=== PATIENT | male | born 1970 | race Two or more races ===

== ENCOUNTER 2022-08-21 05:53 | Emergency (ER) | payer MEDICAID ==
[~2022-08-21] VITALS: Ht 177.8 cm; Wt 68.0 kg
[2022-08-21 07:11] LABS: BASOPHILS % (AUTO) 0.4 % (0-1); EOSINOPHILS # (AUTO) 0.1 X10'3 (0-0.9); EOSINOPHILS % (AUTO) 0.6 % (0-6); HEMATOCRIT 50.4 % (42.0-52.0); HEMOGLOBIN 17.1 g/dl (14.0-17.9); LYMPHOCYTES # (AUTO) 1.2 X10'3 (1.1-4.8); MEAN CORPUSCULAR HEMOGLOBIN 30.9 PG (27.0-31.0); MEAN CORPUSCULAR VOLUME 91.1 FL (78-98); MEAN PLATELET VOLUME 8.8 FL (7.4-10.4); MONOCYTES # (AUTO) 0.4 X10'3 (0-0.9); MONOCYTES % (AUTO) 4.7 % (2-12); NEUTROPHILS # (AUTO) 6.5 X10'3 (1.8-7.7); NEUTROPHILS % (AUTO) 79.3 % (42-75); PLATELET COUNT 229 X10'3 (140-440); RED BLOOD COUNT 5.53 X10'6 (4.70-6.10); RED CELL DISTRIBUTION WIDTH 13.8 % (11.5-14.5); WHITE BLOOD COUNT 8.2 X10'3 (4.5-11.0)
[2022-08-21 07:40] LABS: ALANINE AMINOTRANSFERASE 22 U/L (12-78); ALBUMIN 3.9 G/DL (3.4-5.0); ALBUMIN/GLOBULIN RATIO 1.3 (1.1-1.5); ALKALINE PHOSPHATASE 66 IU/L (46-116); ANION GAP 7 (8-16); ASPARTATE AMINO TRANSFERASE 33 U/L (10-37); BILIRUBIN,TOTAL 0.6 MG/DL (0.1-1.0); BLOOD UREA NITROGEN 20 MG/DL (7-18); BUN/CREATININE RATIO 27.8 (5.4-32.0); CALCIUM 9.3 MG/DL (8.5-10.1); CHLORIDE 101 MMOL/L (99-107); CREATININE 0.72 MG/DL (0.60-1.10); GLUCOSE 109 MG/DL (70-104); POTASSIUM 3.7 MMOL/L (3.5-5.1); SODIUM 135 MMOL/L (135-145); TOTAL PROTEIN 6.8 G/DL (6.4-8.2); eGFR > 90 ML/MIN
[2022-08-21 07:47] LABS: ETHANOL < 0.010 GM/DL (0.0-0.010)
--- NOTE | 2022-08-21 07:57 | NUR ---
While waiting in the lobby, pt has difficulty following simple instructions in Hungarian and Swedish. He keeps getting up to use hand spray ii painter over and over.
--- NOTE | 2022-08-21 10:56 | NUR ---
sent urine to lab at this time. pt was straight cathed
[2022-08-21 11:26] LABS: CLARITY,URINE CLEAR (Clear); COLOR,URINE YELLOW (Yellow); GLUCOSE, URINE NEGATIVE (Neg); KETONES,URINE 15 mg/dl (Neg); LEUKOCYTE ESTERASE ,URINE NEGATIVE (Neg); NITRITES, URINE NEGATIVE (Neg); OCCULT BLOOD,URINE NEGATIVE (Neg); PH,URINE 5.5 (4.8-8.0); PROTEIN,URINE NEGATIVE (Neg); UROBILINOGEN,URINE 0.2 E.U/dL (0.2-1.0)
[2022-08-21 11:41] LABS: UA COLLECTION TYPE STRAIGHT CATH; URINE AMPHETAMINE SCREEN NEGATIVE (Neg); URINE BARBITUATE SCREEN NEGATIVE (Neg); URINE BENZODIAZEPINES SCREEN NEGATIVE (Neg); URINE CANNABINOID SCREEN POSITIVE (Neg); URINE COCAINE SCREEN NEGATIVE (Neg); URINE METHADONE SCREEN NEGATIVE (Neg); URINE OPIATE SCREEN NEGATIVE (Neg); URINE PHENCYCLIDINE SCREEN NEGATIVE (Neg)
[2022-08-21 13:53] VITALS: BP 134/76
[2022-08-22] MEDS ORDERED: NO HOME MEDS (16:17)
== END 2022-08-21 13:54 | disposition home or self-care (01) ==
LOC: ER 05:55
DX: R05.9 Cough, unspecified (principal)
CPT/HCPCS: 36415; 71045; 80053; 80305; 80320; 81003; 82948; 83605; 83880; 85025; 87040; 99284

== ENCOUNTER 2022-08-22 04:37 | Inpatient (IN) | payer MEDICAID ==
[~2022-08-22] VITALS: Ht 182.9 cm; Wt 68.4 kg
[2022-08-22 14:25] LABS: BASOPHILS % (AUTO) 0.7 % (0-1); EOSINOPHILS # (AUTO) 0.1 X10'3 (0-0.9); EOSINOPHILS % (AUTO) 1.6 % (0-6); HEMOGLOBIN 16.3 g/dl (14.0-17.9); LYMPHOCYTES # (AUTO) 1.5 X10'3 (1.1-4.8); MEAN CORPUSCULAR HEMOGLOBIN 31.7 PG (27.0-31.0); MEAN CORPUSCULAR HGB CONC 34.6 g/dL (33.0-36.5); MEAN CORPUSCULAR VOLUME 91.6 FL (78-98); MEAN PLATELET VOLUME 8.6 FL (7.4-10.4); MONOCYTES # (AUTO) 0.3 X10'3 (0-0.9); MONOCYTES % (AUTO) 5.8 % (2-12); NEUTROPHILS # (AUTO) 3.1 X10'3 (1.8-7.7); NEUTROPHILS % (AUTO) 61.9 % (42-75); PLATELET COUNT 223 X10'3 (140-440); RED BLOOD COUNT 5.13 X10'6 (4.70-6.10); RED CELL DISTRIBUTION WIDTH 13.7 % (11.5-14.5)
[2022-08-22 14:39] LABS: ALANINE AMINOTRANSFERASE 30 U/L (12-78); ALBUMIN 3.7 G/DL (3.4-5.0); ALBUMIN/GLOBULIN RATIO 1.3 (1.1-1.5); ALKALINE PHOSPHATASE 57 IU/L (46-116); ANION GAP 6 (8-16); ASPARTATE AMINO TRANSFERASE 54 U/L (10-37); BILIRUBIN,TOTAL 0.9 MG/DL (0.1-1.0); BLOOD UREA NITROGEN 14 MG/DL (7-18); BUN/CREATININE RATIO 16.3 (5.4-32.0); CALCIUM 9.6 MG/DL (8.5-10.1); CHLORIDE 104 MMOL/L (99-107); CREATININE 0.86 MG/DL (0.60-1.10); GLUCOSE 103 MG/DL (70-104); POTASSIUM 3.8 MMOL/L (3.5-5.1); SODIUM 142 MMOL/L (135-145); TOTAL CARBON DIOXIDE 32.4 MMOL/L (24-32); TOTAL PROTEIN 6.6 G/DL (6.4-8.2); eGFR > 90 ML/MIN
[2022-08-22 14:49] LABS: ETHANOL < 0.010 GM/DL (0.0-0.010)
--- NOTE | 2022-08-22 15:33 | NUR ---
PT GIVEN A BED BATH, BED LINEN CHANGE, AND PUT IN GREEN SCRUBS.
[2022-08-22 15:49] LABS: URINE AMPHETAMINE SCREEN NEGATIVE (Neg); URINE BARBITUATE SCREEN NEGATIVE (Neg); URINE BENZODIAZEPINES SCREEN NEGATIVE (Neg); URINE CANNABINOID SCREEN POSITIVE (Neg); URINE COCAINE SCREEN NEGATIVE (Neg); URINE METHADONE SCREEN NEGATIVE (Neg); URINE OPIATE SCREEN NEGATIVE (Neg); URINE PHENCYCLIDINE SCREEN NEGATIVE (Neg)
[2022-08-22] MEDS ORDERED: NO HOME MEDS (16:17)
--- NOTE | 2022-08-22 16:30 | NUR ---
Pt. ambulated over from the Main ER accompanied by Pankaj. He is currently resting in bed.
--- NOTE | 2022-08-22 16:50 | NUR ---
Pt. is up to use the BR at this time, he is able to ambulate independently, however requires direction from staff.
--- NOTE | 2022-08-22 16:58 | NUR ---
[facility] FAXED PACKET TO [facility]
--- NOTE | 2022-08-22 17:08 | NUR ---
TECH GAVE PT A PITCHER OF WATER AND A FOAM CUP
--- NOTE | 2022-08-22 17:10 | NUR ---
PT CAME TO THE ER WITH NO BELONGINGS.
--- NOTE | 2022-08-22 17:18 | NUR ---
[facility] is at bedside evaluating pt. at this time.
--- NOTE | 2022-08-22 18:07 | NUR ---
TECH GAVE PT THEIR DINNER TRAY
--- NOTE | 2022-08-22 18:10 | NUR ---
Pt. is sitting up eating dinner at this time.
--- NOTE | 2022-08-22 22:07 | NUR ---
[facility] CALLED TO DECLINE PT, STATING THEY DIDNT THINK HE WAS MEDICALLY STABLE. CONCERNED ABOUT PREVIOUSLY CHARTED RESPIRATIONS OF 11, HIGH CO2 LEVEL, AND ASSESSMENT OF EDEMA IN BILATERAL ARMS. THIS RN DIDNT OBSERVE ANY EDEMA IN ARMS AND RESPIRATIONS HAVE BEEN WNL AT THIS TIME. WILL CONTINUE TO MONITOR.
--- NOTE | 2022-08-23 06:30 | NUR ---
Received pt. sleeping, laying on his left side, rr even and unlabored.
--- NOTE | 2022-08-23 08:04 | NUR ---
Pt. awoken for breakfast, sitting up eating at this time.
--- NOTE | 2022-08-23 10:20 | NUR ---
Pt. is laying in bed at this time, he makes frequent body adjustments and at times is observed to be reaching for things that are not there as if experiencing V/LLOYD. He is also observed to be whispering aloud at times as if responding to internal stimuli. However, pt. does not appear to be in any distress. 1:1 was completed, pt. denies all MH s/s, however he continues to be disorganized, A&O X1, and makes non-sensical statements making him difficult to understand.
--- NOTE | 2022-08-23 11:26 | NUR ---
Pt. was up to use the BR, but did not use the toilet and had an incontinent episode. He continues to appear confused and requires direction and prompting to change out of wet clothes. Pt. was also running the water in the sink for a long period of time and getting it on the floor reqiring redirection to return to his bed. A snack was provided and pt. reported contentment, will continue to monitor closely.
[2022-08-23 11:48] LABS: CLARITY,URINE SLIGHTLY CLOUDY (Clear); COLOR,URINE YELLOW (Yellow); GLUCOSE, URINE NEGATIVE (Neg); KETONES,URINE 40 mg/dl (Neg); LEUKOCYTE ESTERASE ,URINE NEGATIVE (Neg); NITRITES, URINE NEGATIVE (Neg); OCCULT BLOOD,URINE NEGATIVE (Neg); PROTEIN,URINE NEGATIVE (Neg)
[2022-08-23 11:57] LABS: UA COLLECTION TYPE STRAIGHT CATH
[2022-08-23 11:59] LABS: BACTERIA,URINE FEW /HPF (Neg); MUCUS STRANDS FEW /LPF (Neg); RBC,URINE 0-2 /HPF (0-2); SQUAMOUS EPITHELIAL CELL,UR FEW /LPF (FEW); WBC,URINE 0-4 /HPF (0-4)
[2022-08-23 12:02] LABS: CAL OXALATE CRYSTALS FEW /HPF (NEGATIVE)
[2022-08-23 12:03] LABS: AMORPHOUS PHOSPHATES 2+
--- NOTE | 2022-08-23 12:16 | NUR ---
Pt. is sitting up in bed eating lunch at this time, no s/s of distress noted.
--- NOTE | 2022-08-23 12:58 | NUR ---
Per [facility], pt. has been accepted at [facility].
--- NOTE | 2022-08-23 14:26 | NUR ---
Pt. was transferred to [facility] via a w/c accompanied by staff and security. Pt. did not have any belongings.
[2022-08-23 14:28] VITALS: BP 117/78
[2022-08-23] MEDS ORDERED: acetaminophen 325mg tablet PO PRN ×2 (14:40)
[2022-08-23] MEDS ORDERED: magnesium hydroxide 30ml (MOM) UD suspension PO PRN (14:40)
[2022-08-23] MEDS ORDERED: NICOTINE POLACRILEX 2 MG LOZENGE BC PRN (14:40)
[2022-08-23] MEDS ORDERED: loperamide 2mg capsule PO PRN (14:40)
--- NOTE | 2022-08-23 15:21 | NUR ---
Admit note: Pt admitted today from ER on 5150 for gravely disabled at 1428. Pt is disorganized and making nonsensical statements. He is speaking and making hand gestures to someone that is not in the room. He is dirty and it is unclear if he has been accessing food, clothing or nursing home. Unknown medical history. Pt had his clothing cut off and disposed of upon arrival.
--- NOTE | 2022-08-23 16:43 | NUR ---
Pt was cooperative with a physical assessment. Unable to determine how much Chilean pt understands. Pt nods his head "yes" when asked if he understands Chilean. This RN asked questions in Gambian about medical and mental health history. Pt responded "no me bianca beasley" He does not remember well. Unable to complete [place] Suicide Risk Assessment or an accurate medical or mental health history at this time due to disorganization/ALOC. Addendum: 08/23/22 at 1656 by Meri Rosado RN (Lee) Initially when asked pt what city this was in [place]ian, he replied, "[place]."
--- NOTE | 2022-08-24 03:43 | NUR ---
Nursing Progress Note: Problem : Patient admitted from ER on 5150 for gravely disabled. Pt is disorganized and making nonsensical statements. He is speaking and making hand gestures to someone that is not in the room. He is dirty and it is unclear if he has been accessing food, clothing or correction. Unknown medical history. Pt had his clothing cut off and disposed of upon arrival. Interventions: Attempted 1:1 assessment, contract for safety, prompting and assistance with ADLs and Q 15 minute safety checks. Response: Patient is pleasant; he's confused and requires prompting and assistance with his ADLs. Patient requires a brief and toileting as he makes no attempts to use the restroom. Patient was showered (with assistance) after urinating on himself. He follows instructions but requires the instructions to be repeated. Patient does not make clear comments in response to story writer's questions. Patient provided HS snacks prior to bed; observed sleeping and does not appear to be having difficulty. Plan: Patient requires a safe and therapeutic environment to start and adjustment medications for stabilization prior to discharge .
--- NOTE | 2022-08-24 07:29 | NUR ---
Noted low BMI using scaled wt however current ht may be in error as previous ht was 70in which would make BMI 20. Currently on Regular diet w/ mostly 100% intake of meals. No concern for malnutrition at this time. Addendum: 08/24/22 at [address] Amended: Links added.
[2022-08-24] MEDS: nicotine 21mg patch - 24 hr TD SCH (08:00)
[2022-08-24 09:40] LABS: HEMOGLOBIN A1C 5.3 % (4.5-6.2)
[2022-08-24 09:42] LABS: CHOL/HDL RATIO 1.8 (0.00-4.99); CHOLESTEROL 105 MG/DL (0-200); HDL CHOLESTEROL 60 MG/DL (35-60); LDL CHOLESTEROL 37 MG/DL (50-100); TRIGLYCERIDES 52 MG/DL (20-135)
--- NOTE | 2022-08-24 17:25 | NUR ---
Nursing Progress Note Problem : Patient admitted from ER on 5150 for gravely disabled. Pt is disorganized and making nonsensical statements. He is speaking and making hand gestures to someone that is not in the room. He is dirty and it is unclear if he has been accessing food, clothing or chcf. Unknown medical history. Pt had his clothing cut off and disposed of upon arrival. Interventions: Attempted 1:1 assessment, contract for safety, prompting and assistance with ADLs and Q 15 minute safety checks. Response: Received Pt in bed resting w/o distress. Pt woke and was cooperative with vitals and returned to sleep. Pt needed direction to bathroom and he urinated. Pt ate some of his breakfast and did not want his only AM med, Jeff. Patch. Pt was given clothes from donations and was appreciative. Rishi spoke with Pt in Maltese and helped to explain unit routines and ask Qs. Pt ate lunch and snacks. He remained in his room for much of day and was pleasant in communication attempts to meet needs. Plan: Patient requires a safe and therapeutic environment to start and adjustment medications for stabilization prior to discharge .
--- NOTE | 2022-08-25 03:32 | NUR ---
Nursing Progress Note: Problem : Patient admitted from ER on 5150 for gravely disabled. Pt is disorganized and making nonsensical statements. He is speaking and making hand gestures to someone that is not in the room. He is dirty and it is unclear if he has been accessing food, clothing or retirement. Unknown medical history. Pt had his clothing cut off and disposed of upon arrival. Interventions: Attempted 1:1 assessment, contract for safety, prompting and assistance with ADLs and Q 15 minute safety checks. Response: Pt finished dinner and in day room at change of shift. Pt is pleasant and cooperative and responds to direction well. Pt has not had an incontinent episode this shift. Pt had a snack and watched TV before going to bed. He did not have any HS meds and is currently sleeping w/o distress. Plan: Patient requires a safe and therapeutic environment to start and adjustment medications for stabilization prior to discharge .
[2022-08-25 08:00] VITALS: BP 113/78
[2022-08-25] MEDS: nicotine 21mg patch - 24 hr TD SCH (08:32)
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
--- NOTE | 2022-08-25 16:50 | NUR ---
Nursing Progress Note Problem : Patient admitted from ER on 5150 for gravely disabled. Pt is disorganized and making nonsensical statements. He is speaking and making hand gestures to someone that is not in the room. He is dirty and it is unclear if he has been accessing food, clothing or correction. Unknown medical history. Pt had his clothing cut off and disposed of upon arrival. Interventions: Attempted 1:1 assessment, contract for safety, prompting and assistance with ADLs and Q 15 minute safety checks. Response: RN received pt. asleep in bed at start of shift. Pt. awoke and cooperative with vitals assessment. Pt. ate breakfast and observed chewing on his juice box. RN asked pt. if he wanted help opening up his juice box and pt. allowed RN to put straw correctly in the juice box. RN asked pt. if he was still hungry and pt. said Yes. Pt. given a turkey sandwich. Pt. observed sitting in group during AM and afternoon group pt. has limited participating due to language barrier. Plan: Patient requires a safe and therapeutic environment to start and adjustment medications for stabilization prior to discharge.
--- NOTE | 2022-08-26 04:56 | NUR ---
Nursing Progress Note: Problem : Patient admitted from ER on 5150 for gravely disabled. Pt is disorganized and making nonsensical statements. He is speaking and making hand gestures to someone that is not in the room. He is dirty and it is unclear if he has been accessing food, clothing or penitentiary. Unknown medical history. Pt had his clothing cut off and disposed of upon arrival. Interventions: Attempted 1:1 assessment, contract for safety, prompting and assistance with ADLs and Q 15 minute safety checks. Response: Patient is pleasant; appears confused. He is able to follow simple instructions. No medications scheduled; Nicotine patch removed. He denies MH Sx, stating, "I'm fine, everything is good." Patient continues to require prompting and assistance with ADLs. Patient is incontinent; wearing a brief with chucks on his bed. Patient is isolative to his room; observed sleeping and does not appear to be having difficulty. Plan: Patient requires a safe and therapeutic environment to start and adjustment medications for stabilization prior to discharge .
[2022-08-26 07:54] VITALS: BP 112/83
[2022-08-26] MEDS: nicotine 21mg patch - 24 hr TD SCH (08:27)
--- NOTE | 2022-08-26 09:59 | NUR ---
INFORMATION, [facility] Client is [place]-speaking only. Client is from [facility] in [facility]. Client was seen once by [facility]. Client's cell phone/contact phone is disconnected. Details: Called [facility] [phone]. Per medical records staff, [facility] evaluated client 08/02/2021. Records show client's phone number [phone]. Address listed -- [address] [place] [address]--does not appear on Goggle, though street appears. [facility] records do show client is [place] speaking only. This software writer faxed [facility] [place]: : Per phone call with health records staff, requested facesheet, discharge summary, ER report,
--- NOTE | 2022-08-26 10:48 | NUR ---
RECORDS REQUEST, [facility] Requested records via fax.
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
--- NOTE | 2022-08-26 18:11 | NUR ---
Nursing Progress Note Problem : Patient admitted from ER on 5150 for gravely disabled. Pt is disorganized and making nonsensical statements. He is speaking and making hand gestures to someone that is not in the room. He is dirty and it is unclear if he has been accessing food, clothing or penitentiary. Unknown medical history. Pt had his clothing cut off and disposed of upon arrival. Interventions: Attempted 1:1 assessment, contract for safety, prompting and assistance with ADLs and Q 15 minute safety checks. Response: RN received pt. awake and wandering hallway at start of shift. Pt. appears lost. RN asked pt. if he needed anything and pt. said, no. RN escorted pt. to his room and showed pt. the toilet, pt. then urinated. Pt. then took the toilet paper roll and held it under the running sink water. RN took toilet paper roll from pt. and prompted pt. to wash his hands. Pt. washed his hands and RN held out paper towel for pt. to dry his hands. Pt. then went back to washing his hands until RN prompted him that he had washed his hands enough. RN showered pt. During shower pt. needed multiple promptings to put his head under the water, to put soap in his hair and this RN had to assist pt. in washing himself. Pt. observed sitting in group during AM and afternoon group pt. After group pt. approached RN and held out a cup asking for water. Pt. wanders into other patients rooms at times and needs to be redirected. Plan: Patient requires a safe and therapeutic environment to start and adjustment medications for stabilization prior to discharge.
[2022-08-26 19:49] VITALS: BP 123/69
--- NOTE | 2022-08-27 04:36 | NUR ---
Nursing Progress Note: Problem : Patient admitted from ER on 5150 for gravely disabled. Pt is disorganized and making nonsensical statements. He is speaking and making hand gestures to someone that is not in the room. He is dirty and it is unclear if he has been accessing food, clothing or fdc. Unknown medical history. Pt had his clothing cut off and disposed of upon arrival. Interventions: Attempted 1:1 assessment, contract for safety, prompting and assistance with ADLs and Q 15 minute safety checks. Response: Patient is pleasant; continues to appear confused. He requires frequent prompting with simple instructions for ADLs. No medications and no Nicotine patch found on him this shift. Patient observed in the community room and participated in HS snack prior to bed. Clean linen, clothing and brief provided. Personal clothing washed. He is observed sleeping and does not appear to be having difficulty. Plan: Patient requires a safe and therapeutic environment to start and adjustment medications for stabilization prior to discharge .
--- NOTE | 2022-08-27 07:43 | NUR ---
Initial: Pt admitted w/ psychosis per EMR. Currently on Regular diet w/ mostly 100% intake of meals meeting est needs at this time. Noted low BMI using scaled wt however current ht may be in error as previous ht was 70in which would make BMI 20. LBM 08/22 w/ PRN bowel care available. No nutrition intervention implemented at this time, will continue to monitor. Recs: 1. Continue Regular diet as tolerated 2. Routine bowel care 3. Weekly wts Addendum: 08/27/22 at [address] Amended: Links added.
[2022-08-27 08:00] VITALS: BP 138/83
[2022-08-27] MEDS: nicotine 21mg patch - 24 hr TD SCH (08:54)
[2022-08-27] MEDS ORDERED: risperiDONE 2mg tablet PO ONE (10:15)
[2022-08-27] MEDS ORDERED: risperiDONE 0.5mg tablet PO ONE (10:20)
[2022-08-27] MEDS: mag hydrox/Alum hydrox/simeth 30ml oral suspension PO PRN (10:28)
--- NOTE | 2022-08-27 17:57 | NUR ---
Nursing Progress Note Problem : Patient admitted from ER on 5150 for gravely disabled. Pt is disorganized and making nonsensical statements. He is speaking and making hand gestures to someone that is not in the room. He is dirty and it is unclear if he has been accessing food, clothing or retirement. Unknown medical history. Pt had his clothing cut off and disposed of upon arrival. Interventions: Attempted 1:1 assessment, contract for safety, prompting and assistance with ADLs and Q 15 minute safety checks. Response: RN received pt. asleep in bed at start of shift. Pt. woken up for breakfast. Pt. was heavily soaked in urine. RN showered with help from RN. Pt. needs multiple prompts to wash different parts of his body. Pt. observed sitting in group during AM group. Pt. started on Risperdal 1mg and received first dose. Pt. appears confused coming into the nurses station and needing redirection. Pt. napped for approx. 2hours. Pt. prompted multiple times for toileting, however, pt. had episode of incontinence. Pt. changed. During 1:1 pt. is A&O to himself and place. Pt. does not know why he was admitted to the hospital. Plan: Patient requires a safe and therapeutic environment to start and adjustment medications for stabilization prior to discharge.
[2022-08-27 19:56] VITALS: BP 123/79
[2022-08-27] MEDS: risperiDONE 0.5mg tablet PO SCH (20:35)
--- NOTE | 2022-08-28 04:53 | NUR ---
Nursing Progress Note: Problem : Patient admitted from ER on 5150 for gravely disabled. Pt is disorganized and making nonsensical statements. He is speaking and making hand gestures to someone that is not in the room. He is dirty and it is unclear if he has been accessing food, clothing or nursing home. Unknown medical history. Pt had his clothing cut off and disposed of upon arrival. Interventions: Attempted 1:1 assessment, contract for safety, prompting and assistance with ADLs and Q 15 minute safety checks. Response: Patient is pleasant and cooperative with care; compliant with medication. He was started on Risperidone 1mg with no ASE observed. No Nicotine patch was found this shift. He continues to appear confused but responding to underwriter mortgage loan with one word responses. He denies SI, HI, A/VH. Patient continues to require encouragement/staff assistance to complete ADLs. He participated in HS snack and observe watching TV prior to bed; observed sleeping and does not appear to be having difficulty. Plan: Patient requires a safe and therapeutic environment to start and adjustment medications for stabilization prior to discharge .
[2022-08-28] MEDS: nicotine 21mg patch - 24 hr TD SCH (07:53)
[2022-08-28 08:00] VITALS: BP 115/79
--- NOTE | 2022-08-28 16:51 | NUR ---
Nursing Progress Note: Problem: Patient admitted from ER on 5150 for gravely disabled. Pt is disorganized and making nonsensical statements. He is speaking and making hand gestures to someone that is not in the room. He is dirty and it is unclear if he has been accessing food, clothing or halfway. Unknown medical history. Pt had his clothing cut off and disposed of upon arrival. Interventions: Attempted 1:1 assessment, contract for safety, prompting and assistance with ADLs and Q 15 minute safety checks. Response: Patient received resting quietly in bed. Cooperative with assessment and medication. Patient is mostly Romansh speaking. Appears to understand some Thai AEB hand gestures but patient does not attempt to speak to staff but instead uses hand gestures and head nods. Patient spends time in common areas. He looks somewhat lost but declines help when offered. Plan: Patient requires a safe and therapeutic environment to start and adjustment medications for stabilization prior to discharge.
[2022-08-28 19:00] VITALS: BP 109/69
[2022-08-28] MEDS: risperiDONE 0.5mg tablet PO SCH (20:37)
--- NOTE | 2022-08-29 04:56 | NUR ---
Nursing Progress Note: Problem : Patient admitted from ER on 5150 for gravely disabled. Pt is disorganized and making nonsensical statements. He is speaking and making hand gestures to someone that is not in the room. He is dirty and it is unclear if he has been accessing food, clothing or penitentiary. Unknown medical history. Pt had his clothing cut off and disposed of upon arrival. Interventions: Attempted 1:1 assessment, contract for safety, prompting and assistance with ADLs and Q 15 minute safety checks. Response: Patient is pleasant and cooperative; continues to appear confused. Compliant with medication. Nicotine patch removed. He continues to follow simple instructions and responds with one word the majority of the time. He denies SI, HI, A/VH. Patient watched TV in the community room and participated in HS snack prior to bed; observed having difficulty getting to sleep this shift. Plan: Patient requires a safe and therapeutic environment to start and adjustment medications for stabilization prior to discharge .
[2022-08-29 07:21] VITALS: BP 126/84
[2022-08-29] MEDS: nicotine 21mg patch - 24 hr TD SCH (07:55)
--- NOTE | 2022-08-29 17:48 | NUR ---
Nursing Progress Note: Problem: Patient admitted from ER on 5150 for gravely disabled. Pt is disorganized and making nonsensical statements. He is speaking and making hand gestures to someone that is not in the room. He is dirty and it is unclear if he has been accessing food, clothing or nursing home. Unknown medical history. Pt had his clothing cut off and disposed of upon arrival. Interventions: Attempted 1:1 assessment, contract for safety, prompting and assistance with ADLs and Q 15 minute safety checks. Response: Patient received awake in his room. Appears disorganized and lost as he wanders the halls. Patient is Citizen Of [place] speaking but also understands some Palestinian. Requires encouragement and direction for ADLs at times. No episodes of incontinence noted this shift. Cooperative with 1:1 assessment. Nicotine patch is the only medication prescribed this shift which the patient is cooperative with. No PRNs are requested/ required. Patient spends much of the day pacing the halls slowly and sitting in the community room. Plan: Patient requires a safe and therapeutic environment to start and adjustment medications for stabilization prior to discharge.
[2022-08-29 19:00] VITALS: BP 117/71
[2022-08-29] MEDS: risperiDONE 2mg tablet PO SCH (21:34)
--- NOTE | 2022-08-30 05:24 | NUR ---
Nursing Progress Note: Problem : Patient admitted from ER on 5150 for gravely disabled. Pt is disorganized and making nonsensical statements. He is speaking and making hand gestures to someone that is not in the room. He is dirty and it is unclear if he has been accessing food, clothing or residential. Unknown medical history. Pt had his clothing cut off and disposed of upon arrival. Interventions: Attempted 1:1 assessment, contract for safety, prompting and assistance with ADLs and Q 15 minute safety checks. Response: Patient is pleasant and cooperative with care; continues to appear confused at times. Compliant with medication; Risperidone was increased to 2mg this shift with no ASE observed. Nicotine was unable to be located. He denies SI, HI, A/VH. He participated in HS snack and observed watching TV prior to bed; appeared to have some difficulty getting to sleep. Plan: Patient requires a safe and therapeutic environment to start and adjustment medications for stabilization prior to discharge .
[2022-08-30 07:20] VITALS: BP 122/83
[2022-08-30] MEDS: nicotine 21mg patch - 24 hr TD SCH (08:00)
--- NOTE | 2022-08-30 16:50 | NUR ---
Nursing Progress Note: Problem: Patient admitted from ER on 5150 for gravely disabled. Pt is disorganized and making nonsensical statements. He is speaking and making hand gestures to someone that is not in the room. He is dirty and it is unclear if he has been accessing food, clothing or halfway. Unknown medical history. Pt had his clothing cut off and disposed of upon arrival. Interventions: Attempted 1:1 assessment, contract for safety, prompting and assistance with ADLs and Q 15 minute safety checks. Response: Patient received awake in his room. Cooperative with assessment and medication. Patient is disheveled/ disorganized and he wanders the unit. One episode of urinary incontinence is noted. Patient is able to clean himself up once provided with supplies. Patient gives short one word answers. In the afternoon the patient complains of stomach upset. PRN Maalox is given with good effect. Plan: Patient requires a safe and therapeutic environment to start and adjustment medications for stabilization prior to discharge.
[2022-08-30 19:00] VITALS: BP 113/70
[2022-08-30] MEDS: risperiDONE 2mg tablet PO SCH (20:43)
--- NOTE | 2022-08-31 05:50 | NUR ---
Nursing Progress Note: Problem : Patient admitted from ER on 5150 for gravely disabled. Pt is disorganized and making nonsensical statements. He is speaking and making hand gestures to someone that is not in the room. He is dirty and it is unclear if he has been accessing food, clothing or senior care. Unknown medical history. Pt had his clothing cut off and disposed of upon arrival. Interventions: Attempted 1:1 assessment, contract for safety, prompting and assistance with ADLs and Q 15 minute safety checks. Response: Patient is pleasant and cooperative; compliant with medication. Patient reported no Nicotine patch on him at time to remove it. He continues to appear confused and requires prompting/encouragement for ADLs. He denies SI, HI, A/VH. Patient participated in HS snack and watched TV prior to bed; observed sleeping and woke up early AM. Patient only slept 4.75 hrs. Plan: Patient requires a safe and therapeutic environment to start and adjustment medications for stabilization prior to discharge .
[2022-08-31] MEDS: nicotine 21mg patch - 24 hr TD SCH (07:38)
[2022-08-31 07:40] VITALS: BP 116/75
--- NOTE | 2022-08-31 17:14 | NUR ---
Nursing Progress Note: Problem: Patient admitted from ER on 5150 for gravely disabled. Pt is disorganized and making nonsensical statements. He is speaking and making hand gestures to someone that is not in the room. He is dirty and it is unclear if he has been accessing food, clothing or senior living. Unknown medical history. Pt had his clothing cut off and disposed of upon arrival. Interventions: Provide medication administration & medication management; Maintained a safe & supportive environment; Clear & simple instructions; Direction & encouragement regarding performance of ADLs; monitored behaviors & maintained clear boundaries; Patient physical assessment & 1:1 patient interview; Therapeutic conversation & active listening; Patient education & monitoring. Response: Patient was awake at 0530 and ambulating in the hallway, then stops and looks at the garza then will continue ambulating after approximately 20 minutes. Patient is able to speak some Urdu and respond appropriately to answered questions. Patient appeared disorganized and Patient was observed touching himself inside of his zippered jeans, and was informed to go to the toilet to urinate each time, and this occurred multiple times throughout the day. Patient would urinate in the toilet each time this occurred, and was not incontinent at all today. Patient ate his meals in the Community Room and participated in snack times. Patient was moved to Room 322B and introduced to his roommate and informed where the toilet was and the storage of his belongings on the shelves. Plan: Patient requires a safe and therapeutic environment to start and adjustment medications for stabilization prior to discharge.
[2022-08-31 19:00] VITALS: BP 108/71
[2022-08-31] MEDS: risperiDONE 2mg tablet PO SCH (21:35)
--- NOTE | 2022-09-01 04:58 | NUR ---
Nursing Progress Note: Problem : Patient admitted from ER on 5150 for gravely disabled. Pt is disorganized and making nonsensical statements. He is speaking and making hand gestures to someone that is not in the room. He is dirty and it is unclear if he has been accessing food, clothing or jail. Unknown medical history. Pt had his clothing cut off and disposed of upon arrival. Interventions: Attempted 1:1 assessment, contract for safety, prompting and assistance with ADLs and Q 15 minute safety checks. Response: Patient is pleasant and cooperative but remains confused; compliant with medication. Nicotine patch removed. He denies SI, HI, A/VH. Patient continues to layer jeans and requires assistance redressing appropriately. Patient participated in HS snack and watched TV in the community room prior to bed; observed sleeping and does not appear to be having difficulty. Plan: Patient requires a safe and therapeutic environment to start and adjustment medications for stabilization prior to discharge .
[2022-09-01 07:36] VITALS: BP 110/65
[2022-09-01] MEDS: nicotine 21mg patch - 24 hr TD SCH (08:43)
--- NOTE | 2022-09-01 11:35 | NUR ---
Called the [facility], Sandra can return. TASNEEM Chen
--- NOTE | 2022-09-01 17:27 | NUR ---
Nursing Progress Note: Problem: Patient admitted from ER on 5150 for gravely disabled. Pt is disorganized and making nonsensical statements. He is speaking and making hand gestures to someone that is not in the room. He is dirty and it is unclear if he has been accessing food, clothing or custodial. Unknown medical history. Pt had his clothing cut off and disposed of upon arrival. Interventions: Provide medication administration & medication management; Maintained a safe & supportive environment; Clear & simple instructions; Direction & encouragement regarding performance of ADLs; monitored behaviors & maintained clear boundaries; Patient physical assessment & 1:1 patient interview; Therapeutic conversation & active listening; Patient education & monitoring. Response: Patient slept in his bed and refused to get out of his bed for breakfast. Patient woke up at 1000 and went to the Community Room and drank some juice and was watching TV. Patient requested to receive assistance to shave this morning, and LUCIA Corona helped him out. Patient ambulated in the paredes and then attended Snack Time in the hallway and also the Group Meeting. Patient was an active listener during the Group Meeting. Patient has not been visualized speaking to internal voices or having AH/VH. Patient toileted himself all day with no episodes of incontinence. Patient has a pleasant demeanor and was cooperative throughout the day. Plan: Discharge to the [facility] sometime in the near future. Patient requires a safe and therapeutic environment to start and adjustment medications for stabilization prior to discharge.
[2022-09-01 19:44] VITALS: BP 115/76
[2022-09-01] MEDS: risperiDONE 2mg tablet PO SCH (20:59)
[2022-09-01] MEDS: mag hydrox/Alum hydrox/simeth 30ml oral suspension PO PRN (21:03)
--- NOTE | 2022-09-02 04:28 | NUR ---
Nursing Progress Note: Problem : Patient admitted from ER on 5150 for gravely disabled. Pt is disorganized and making nonsensical statements. He is speaking and making hand gestures to someone that is not in the room. He is dirty and it is unclear if he has been accessing food, clothing or senior living. Unknown medical history. Pt had his clothing cut off and disposed of upon arrival. Interventions: Attempted 1:1 assessment, contract for safety, prompting and assistance with ADLs and Q 15 minute safety checks. Response: Patient is pleasant and cooperative; he continues to appear confused at times but improving. Patient is expressing needs more and following direction better. No incontinence this shift. Patient is compliant with medication. PRN Maalox provided per patient's request. Nicotine patch removed. He participated in HS snack and watched TV prior to bed; observed sleeping and does not appear to be having difficulty. Plan: Patient requires a safe and therapeutic environment to start and adjustment medications for stabilization prior to discharge .
--- NOTE | 2022-09-02 07:19 | NUR ---
Reassessment: Pt continues on Regular diet w/ mostly 100% intake of meals meeting est needs at this time. [facility] 08/26 w/ PRN bowel care available. No nutrition intervention implemented at this time, will continue to monitor. Recs: 1. Continue Regular diet as tolerated 2. Routine bowel care 3. Weekly wts Addendum: 09/02/22 at [address] Amended: Links added.
[2022-09-02 07:47] VITALS: BP 128/77
[2022-09-02] MEDS: nicotine 21mg patch - 24 hr TD SCH (08:44)
--- NOTE | 2022-09-02 15:17 | NUR ---
THERAPEUTIC GROUP Client attended group. Group focus built on the morning group topic of core beliefs about ourselves, adding the topic of emotions, emotions to reactions/behaviors, and skill building. Modality was group/peer talk, handouts, and review. Client was pleasant, remained in a chair to the side, did not engage with peers or handouts, answered direct questions with a "yes" or "no", stayed the entirety of group.
--- NOTE | 2022-09-02 16:30 | NUR ---
MOCA TEST: Met with patient to ask him to participate in the MOCA Exam. Patient immediately responded "No Englis." Read the directions to the patient, and he said "No."
--- NOTE | 2022-09-02 17:16 | NUR ---
Nursing Progress Note: Problem: Patient admitted from ER on 5150 for gravely disabled. Pt is disorganized and making nonsensical statements. He is speaking and making hand gestures to someone that is not in the room. He is dirty and it is unclear if he has been accessing food, clothing or [facility]. Unknown medical history. Pt had his clothing cut off and disposed of upon arrival. Interventions: Provide medication administration & medication management; Maintained a safe & supportive environment; Clear & simple instructions; Direction & encouragement regarding performance of ADLs; monitored behaviors & maintained clear boundaries; Patient physical assessment & 1:1 patient interview; Therapeutic conversation & active listening; Patient education & monitoring. Response: Patient was up early out of bed and ambulating in the hallway. Patient smiling and appears pleasant. Patient ate his meals in the Community Room and participated in snack time. When this [place] was putting the Nicotine Patch on the patients shoulder this morning after breakfast, the patient was asked if he would return to smoking cigarettes after he was discharged from [facility] after discharge, and the patient replied Oh yes, I love to smoke cigarettes, I really like them very much. And was smiling when he told me this. Patient was pleasant and also helped others during the day. Patient sat in the Community Room watching TV and sat during the afternoon group session. Patient was not observed responding to / or Internal Voices during the daytime. Plan: Discharge to the [facility] sometime in the near future. Patient requires a safe and therapeutic environment to start and adjustment medications for stabilization prior to discharge.
[2022-09-02 19:54] VITALS: BP 110/81
[2022-09-02] MEDS: risperiDONE 2mg tablet PO SCH (20:15)
--- NOTE | 2022-09-03 04:27 | NUR ---
Nursing Progress Note: Problem : Patient admitted from ER on 5150 for gravely disabled. Pt is disorganized and making nonsensical statements. He is speaking and making hand gestures to someone that is not in the room. He is dirty and it is unclear if he has been accessing food, clothing or long term. Unknown medical history. Pt had his clothing cut off and disposed of upon arrival. Interventions: Attempted 1:1 assessment, contract for safety, prompting and assistance with ADLs and Q 15 minute safety checks. Response: Patient is pleasant and cooperative; continues to require encouragement to complete ADLs. Patient showered and linen changed this shift. Compliant with medication and Nicotine patch removed. He participated in HS snack and watched TV prior to bed; observed sleeping and does not appear to be having difficulty. Plan: Patient requires a safe and therapeutic environment to start and adjustment medications for stabilization prior to discharge .
[2022-09-03 07:26] VITALS: BP 121/78
[2022-09-03] MEDS: nicotine 21mg patch - 24 hr TD SCH (08:23)
--- NOTE | 2022-09-03 17:32 | NUR ---
Nursing Progress Note Problem : Patient admitted from ER on 5150 for gravely disabled. Pt is disorganized and making nonsensical statements. He is speaking and making hand gestures to someone that is not in the room. He is dirty and it is unclear if he has been accessing food, clothing or halfway. Unknown medical history. Pt had his clothing cut off and disposed of upon arrival. Interventions: 1:1 Medication administration. Maintained a safe and supportive environment, provided clear and simple instructions, provided direction and encouragement regarding performance of ADLs, monitored behaviors and maintained clear boundaries, provided positive reinforcement, and maintained Q15 minute safety checks Response: RN received pt. asleep in bed at start of shift. Pt. awoke for breakfast and received nicotine patch. Pt. requesting to wash his sweatshirt. Pt. observed watching TV in community room and socializing with peers. 1:1 done at bedside, Pt. denies all psych symptoms but continues to report that he is in the hospital due to pneumonia. Plan: Patient requires a safe and therapeutic environment to start and adjustment medications for stabilization prior to discharge.
[2022-09-03 20:00] VITALS: BP 106/72
[2022-09-03] MEDS: risperiDONE 2mg tablet PO SCH (20:21)
--- NOTE | 2022-09-03 23:44 | NUR ---
Nursing Progress Note : aSndra Problem : Patient admitted from ER on 5150 for gravely disabled. Pt is disorganized and making nonsensical statements. He is speaking and making hand gestures to someone that is not in the room. He is dirty and it is unclear if he has been accessing food, clothing or residential. Unknown medical history. Pt had his clothing cut off and disposed of upon arrival. Interventions: 1:1 Medication administration. Maintained a safe and supportive environment, provided clear and simple instructions, provided direction and encouragement regarding performance of ADLs, monitored behaviors and maintained clear boundaries, provided positive reinforcement, and maintained Q15 minute safety checks Response: RN received pt sitting in community room watching TV with peers. Pt calm and cooperative with care, no complaints, denies MH symptoms. Pt showered this shift and participated in snacks. Pt took all HS medications without any issue and went to bed. Plan: Patient requires a safe and therapeutic environment to start and adjustment medications for stabilization prior to discharge.
[2022-09-04 08:00] VITALS: BP 125/71
[2022-09-04] MEDS: nicotine 21mg patch - 24 hr TD SCH (08:25)
--- NOTE | 2022-09-04 12:17 | NUR ---
DISCHARGE PLAN Met with Sandra with [facility], to discuss discharge plan. Ct is agreeable to discharge to the [facility] tomorrow. Meds will get ordered and delivered from [facility] prior to discharge. It is recommended that patient change his Med[facility] to [facility] if he intends on staying in the area. TASNEEM Chen
--- NOTE | 2022-09-04 14:12 | NUR ---
Nursing Progress Note Problem : Patient admitted from ER on 5150 for gravely disabled. Pt is disorganized and making nonsensical statements. He is speaking and making hand gestures to someone that is not in the room. He is dirty and it is unclear if he has been accessing food, clothing or [facility]. Unknown medical history. Pt had his clothing cut off and disposed of upon arrival. Interventions: 1:1 assessment, establishment of rapport, therapeutic conversation, active listening, medication monitoring, behavior monitoring and intervention as needed, provided distraction, redirection, reorientation, reality orientation, positive reinforcement, and maintained Q15 minute safety checks Response: Pt was up for breakfast. Pt denied depression, SI/HI/AH/VH. Pt states that there have been very few times in his life when he has felt depressed. Pt reports that he used to hear voices but he doesn't now. Pt asked when he would be discharged as he needs to go look for work. Pt has no income. Pt says he can stay at the [facility]. Asked pt what kind of work he would look for. Pt answered that there must be something. Pt states he knows he can find work in summer. Reminded pt that it is winter. Asked pt if he had any family. Pt shook his head no. Asked pt if he had family in [place]. Pt stated that he used to do drugs and he believes his family still thinks he does drugs so they don't want to have anything to do with him. Pt showered independently and changed into clean scrubs today. Plan: Pt was in need of stabilization in a safe and therapeutic environment. Plan is for him to have his discharge meds delivered tomorrow then he will discharge to the [facility].
[2022-09-04] MEDS ORDERED: RISP2TAB85 PO (14:50)
[2022-09-04] MEDS ORDERED: NICO-687 TD (14:50)
[2022-09-04] MEDS ORDERED: NICO-907 BC (14:50)
[2022-09-04 20:04] VITALS: BP 93/59
[2022-09-04] MEDS: risperiDONE 2mg tablet PO SCH (20:36)
--- NOTE | 2022-09-05 04:02 | NUR ---
Nursing Progress Note Problem: Patient admitted from ER on 5150 for gravely disabled. Pt is disorganized and making nonsensical statements. He is speaking and making hand gestures to someone that is not in the room. He is dirty and it is unclear if he has been accessing food, clothing or correction. Unknown medical history. Pt had his clothing cut off and disposed of upon arrival. Interventions: 1:1 assessment, establishment of rapport, therapeutic conversation, active listening, medication monitoring, behavior monitoring and intervention as needed, provided distraction, redirection, reorientation, reality orientation, positive reinforcement, and maintained Q15 minute safety checks Response: Pt was resting in bed at beginning of shift. Pt denied depression, and does not want to hurt himself, denies hearing voices. Pt states I am fine, I am not depress. Pt said he had a bowel movement today and is using the toilet. Pt came out of the room for snacks and went back to bed. Risperdal 2mg given @ HS. Pt had a good night and slept well. Plan: Pt was in need of stabilization in a safe and therapeutic environment. Plan is for him to have his discharge meds delivered tomorrow then he will discharge to the [facility].
[2022-09-05 07:15] VITALS: BP 109/67
[2022-09-05] MEDS: nicotine 21mg patch - 24 hr TD SCH (08:13)
--- NOTE | 2022-09-05 15:20 | NUR ---
DISCHARGE NOTE: Pt. discharge to [facility] driven by taxi. Pt. had no belongings or clothes upon admission. Pt. given jeans, shirt, sweatshirt, and shoes. RN went over discharge paperwork and pt. verbalized understanding of discharge plan, home medications, firearms restriction, and emergency phone numbers including 911. Pt. signed discharge paperwork. Pt. discharged with home medications. Pt. to start [facility] at [facility]. Pt. denies SI/HI, A/V hallucinations. Pt. is A&Ox4 and in no apparent distress.
== END 2022-09-05 15:20 | disposition home or self-care (01) | DRG 751 ==
LOC: ER 04:37 → ED HOLD 08-23 13:00 → ADULT MH 08-23 14:43
PROVIDERS: ADMIT Psychiatry & Neurology Psychiatry; ATTEND Psychiatry & Neurology Psychiatry
DX: F29 Unspecified psychosis not due to a substance or known physiological condition (principal); F12.90 Cannabis use, unspecified, uncomplicated; F15.90 Other stimulant use, unspecified, uncomplicated; Z20.822 Contact with and (suspected) exposure to COVID-19; Z60.2 Problems related to living alone; Z59.00 Homelessness unspecified; R10.84 Generalized abdominal pain; R51.9 Headache, unspecified
CPT/HCPCS: 36415; 80053; 80061; 80305; 80320; 81001; 83036; 84443; 85025; 87070; 87077; 87081; 87186; 87811; 99285; C2617